=== PATIENT | male | born 1990 | race American Indian/Alaskan Native ===

== ENCOUNTER 2016-11-13 15:55 | Emergency (ER) | payer OTHER ==
--- NOTE | 2016-11-13 16:14 | EDM.PDOC ---
ED HPI GENERAL MEDICAL PROBLEM - General Chief Complaint: Fever Stated Complaint: FEVER/EYES SORE Time Seen by Provider: 11/13/16 16:11 - History of Present Illness INITIAL COMMENTS - FREE TEXT/NARRATIVE: HISTORY AND PHYSICAL: History of present illness: The patient is a 26-year-old male with no stated medical problems who presents with a ten-day history of body aches malaise and fevers in the evenings up to 101 which resolved with Tylenol and diarrhea which is loose to 3 times per day. He has no chest pain or shortness of breath no sore throat no headache or neck pain no abdominal pain no vomiting or nausea. He's been able to eat or drink. He does not feel like he is dehydrated and he usually follows at [facility] but did not go there and came here for evaluation. The patient denies any ill contacts or recent travel. He doesn't have any swollen glands in these notes in his neck and he has no ear pain. The patient states he mostly gets the fevers in the evening time and not during the daytime. The patient also complains of pain behind his eyes deep in his face but does not radiate. He has no nasal congestion or drainage. He denies seasonal allergies Review of systems: As per history of present illness and below otherwise all systems reviewed and negative. Past medical history: As per history of present illness and as reviewed below otherwise noncontributory. Surgical history: As per history of present illness and as reviewed below otherwise noncontributory. Social history: No reported history of drug or alcohol abuse. Family history: As per history of present illness and as reviewed below otherwise noncontributory. Physical exam: Gen.: Well-developed well-nourished male who is nontoxic and speaking easily in the ED and vital signs have been reviewed by me. Skin: Normal turgor no evidence of overt rashes or lesions are seen HEENT: Atraumatic, normocephalic, pupils reactive, sclera are not injected negative for conjunctival pallor or scleral icterus, mucous membranes moist, throat clear, neck supple, nontender, trachea midline. There is no cervical adenopathy or nuchal rigidity, TMs are normal bilaterally, nasal turbinates are boggy and erythematous bilaterally but there are nonobstructing and there is scant nasal drainage. There is mild maxillary sinus tenderness on palpation and no frontal sinus tenderness Lungs: Clear to auscultation, breath sounds equal bilaterally, chest nontender. Heart: S1S2, regular rate and rhythm no overt murmurs Abdomen: Soft, nondistended, nontender. NABS. Genitourinary: Deferred. Rectal: Deferred. Extremities: Atraumatic, negative for cords or calf pain. Neurovascular unremarkable. Neuro: Awake, alert, oriented. Cranial nerves II through XII unremarkable. Cerebellum unremarkable. Motor and sensory unremarkable throughout. Exam nonfocal. Diagnostics: CBC CMP lactic acid Monospot Therapeutics: Toradol was offered and declined I discussed with the patient that this constellation of symptoms is most likely viral but that I would be happy to do some basic labs here in the ED and he would need to follow-up with his clinic doctor at [facility] or one of our physicians for further care I discussed all testing results with the patient including the lymphocytic shift of his differential, his Monospot test is positive, and the slight bump in his liver function tests. I've advised him on symptomatic care. I advised him to follow-up in the clinic and get a repeat liver function tests as both a combination of his semiregular beer use and the [place] can cause a bump in those liver tests I advised follow-up in the clinic hydration and rest Impression: Viral illness/mononucleosis Definitive disposition and diagnosis as appropriate pending reevaluation and review of above. Generalized Pain Score (Numeric/FACES): 4 - Related Data Allergies Allergy/AdvReac Type Severity Reaction Status Date / Time No Known Allergies Allergy Verified 10/24/15 22:17 Home Meds: Home Meds . [No Known Home Meds] 10/24/15 [History] Past Medical History - Past Health History Medical/Surgical History: Denies Medical/Surgical History - Infectious Disease History Infectious Disease History: Reports: Chicken Pox - Past Surgical History GI Surgical History: Reports: Hernia Repair/Other Musculoskeletal Surgical History: Reports: Other (See Below) Social & Family History - Family History Cardiac: Reports: Heart Failure - Tobacco Use Smoking Status *Q: Former Smoker Years of Tobacco use: 3 Packs/Tins Daily: 0.1 Used Tobacco, but Quit: Yes Month Tobacco Last Used: dec 2015 - Recreational Drug Use Recreational Drug Use: No ED ROS GENERAL - Review of Systems Review Of Systems: ROS reveals no pertinent complaints other than HPI. ED EXAM, GENERAL - Physical Exam Exam: See Below (see dictation) Course - Vital Signs Last Recorded V/S: Last Vital Signs Temp 36.0 C 11/13/16 16:05 Pulse 79 11/13/16 16:05 Resp 18 11/13/16 16:05 BP 134/79 11/13/16 16:05 Pulse Ox 97 11/13/16 16:05 - Orders/Labs/Meds Labs: Laboratory Tests 11/13/16 11/13/16 11/13/16 Range/Units 16:20 16:20 16:20 WBC 5.78 (4.0-11.0) K/uL RBC 5.11 (4.50-5.90) M/uL Hgb 15.4 (13.0-17.0) g/dL Hct 44.6 (38.0-50.0) % MCV 87.3 (80.0-98.0) fL MCH 30.1 (27.0-32.0) pg MCHC 34.5 (31.0-37.0) g/dL RDW Std Deviation 40.9 (28.0-62.0) fl RDW Coeff of Natalie 13 (11.0-15.0) % Plt Count 264 (150-400) K/uL MPV 9.30 (7.40-12.00) fL Add Manual Diff YES Neutrophils % (Manual) 29 L (48.0-80.0) % Band Neutrophils % 15 % Lymphocytes % (Manual) 44 H (16.0-40.0) % Monocytes % (Manual) 10 (0.0-15.0) % Eosinophils % (Manual) 2 (0.0-7.0) % Nucleated RBC % 0.0 /100WBC Absolute Seg Neuts 1.7 Band Neutrophils # 0.9 Lymphocytes # (Manual) 2.5 Monocytes # (Manual) 0.6 Eosinophils # (Manual) 0.1 Nucleated RBCs # 0 K/uL Lactate 0.8 (0.20-2.00) mmol/L Sodium 138 (136-146) mmol/L Potassium 4.1 (3.5-5.1) mmol/L Chloride 106 (98-110) mmol/L Carbon Dioxide 23 (21-31) mmol/L BUN 16 (6.0-23.0) mg/dL Creatinine 1.2 (0.6-1.5) mg/dL Est Cr Clr Drug Dosing TNP Estimated GFR (MDRD) > 60.0 ml/min Glucose 101 (60-110) mg/dL Calcium 9.2 (8.8-10.8) mg/dL Total Bilirubin 0.5 (0.1-1.5) mg/dL AST 57 H (5-40) IU/L ALT 96 H (8-54) IU/L Alkaline Phosphatase 116 (40-150) Total Protein 7.6 (6.0-8.0) g/dL Albumin 4.2 (3.5-5.0) g/dL Globulin 3.4 (2.0-3.5) g/dL Albumin/Globulin Ratio 1.2 L (1.3-2.8) Monoscreen (NEG) 11/13/16 Range/Units 16:20 WBC (4.0-11.0) K/uL RBC (4.50-5.90) M/uL Hgb (13.0-17.0) g/dL Hct (38.0-50.0) % MCV (80.0-98.0) fL MCH (27.0-32.0) pg MCHC (31.0-37.0) g/dL RDW Std Deviation (28.0-62.0) fl RDW Coeff of Natalie (11.0-15.0) % Plt Count (150-400) K/uL MPV (7.40-12.00) fL Add Manual Diff Neutrophils % (Manual) (48.0-80.0) % Band Neutrophils % % Lymphocytes % (Manual) (16.0-40.0) % Monocytes % (Manual) (0.0-15.0) % Eosinophils % (Manual) (0.0-7.0) % Nucleated RBC % /100WBC Absolute Seg Neuts Band Neutrophils # Lymphocytes # (Manual) Monocytes # (Manual) Eosinophils # (Manual) Nucleated RBCs # K/uL Lactate (0.20-2.00) mmol/L Sodium (136-146) mmol/L Potassium (3.5-5.1) mmol/L Chloride (98-110) mmol/L Carbon Dioxide (21-31) mmol/L BUN (6.0-23.0) mg/dL Creatinine (0.6-1.5) mg/dL Est Cr Clr Drug Dosing Estimated GFR (MDRD) ml/min Glucose (60-110) mg/dL Calcium (8.8-10.8) mg/dL Total Bilirubin (0.1-1.5) mg/dL AST (5-40) IU/L ALT (8-54) IU/L Alkaline Phosphatase (40-150) Total Protein (6.0-8.0) g/dL Albumin (3.5-5.0) g/dL Globulin (2.0-3.5) g/dL Albumin/Globulin Ratio (1.3-2.8) Monoscreen POSITIVE (NEG) Departure - Departure Time of Disposition: 17:35 Disposition: Home, Self-Care 01 Condition: Good Clinical Impression: Viral illness, Mononucleosis - Discharge Information Forms: ED Department Discharge Additional Instructions: The following information is given to patients seen in the emergency department who are being discharged to home. This information is to outline your options for follow-up care. We provide all patients seen in our emergency department with a follow-up referral. The need for follow-up, as well as the timing and circumstances, are variable depending upon the specifics of your emergency department visit. If you don't have a primary care physician on staff, we will provide you with a referral. We always advise you to contact your personal physician following an emergency department visit to inform them of the circumstance of the visit and for follow-up with them and/or the need for any referrals to a consulting specialist. The emergency department will also refer you to a specialist when appropriate. This referral assures that you have the opportunity for followup care with a specialist. All of these measure are taken in an effort to provide you with optimal care, which includes your followup. Under all circumstances we always encourage you to contact your private physician who remains a resource for coordinating your care. When calling for followup care, please make the office aware that this follow-up is from your recent emergency room visit. If for any reason you are refused follow-up, please contact the [facility] emergency department at and ask to speak to the emergency department charge nurse. [facility] Primary care- [place] [address] Push hydration rest and please call and follow-up with one of our clinic physicians as we discussed for reevaluation and further care as well as repeat liver function test. Please try to reduce your beer intake and use over-the- counter medications for fever and pain. Return to the ER as needed and as discussed
[2016-11-13 16:48] LABS: CHLORIDE,CL 106 mmol/L (98-110); SODIUM,NA 138 mmol/L (136-146)
[2016-11-13 17:47] VITALS: BP 124/70
== END 2016-11-13 17:52 | disposition home or self-care (01) ==
LOC: MW.ED 15:55
DX: B27.90 Infectious mononucleosis, unspecified without complication (principal); B34.9 Viral infection, unspecified; Z87.891 Personal history of nicotine dependence
CPT/HCPCS: 36415; 80053; 83605; 85025; 86308; 99282; 99283

== ENCOUNTER 2018-01-20 00:26 | Emergency (ER) | payer OTHER ==
--- NOTE | 2018-01-20 00:28 | EDM.PDOC ---
ED HPI GENERAL MEDICAL PROBLEM - General Stated Complaint: BACK PAIN Time Seen by Provider: 01/20/18 00:27 Source of Information: Reports: Patient History Limitations: Reports: No Limitations - History of Present Illness INITIAL COMMENTS - FREE TEXT/NARRATIVE: HISTORY AND PHYSICAL: History of present illness: 27-year-old male presenting months department with chief complaint of lower back pain. Patient states that he has a history of lower back pain and has been seen by a provider for this approximately 3-4 weeks ago. At that time he was given a muscle relaxer. Patient states that he has been sick on and off for the past 4 days but was feeling better later this evening so went to a friend's house to play basketball. States that when he went up to "dunk the ball" he hung on the rim and felt a immediate squeezing in his right lower back. States that he fell to the ground in pain. Denies any trauma or hitting his head or loss of consciousness. States that he has had pain since so came to the emergency department for further evaluation. He denies any direct trauma to his back and denies any bowel or bladder incontinence. Denies any loss of muscle strength or sensation. Review of systems: As per history of present illness and below otherwise all systems reviewed and negative. Past medical history: As per history of present illness and as reviewed below otherwise noncontributory. Surgical history: As per history of present illness and as reviewed below otherwise noncontributory. Social history: No reported history of drug or alcohol abuse. Family history: As per history of present illness and as reviewed below otherwise noncontributory. Physical exam: HEENT: Atraumatic, normocephalic, pupils reactive, negative for conjunctival pallor or scleral icterus, mucous membranes moist, throat clear, neck supple, nontender, trachea midline. Lungs: Clear to auscultation, breath sounds equal bilaterally, chest nontender. Heart: S1S2, regular, negative for clicks, rubs, or JVD. Abdomen: Soft, nondistended, nontender. Negative for masses or hepatosplenomegaly. Negative for costovertebral tenderness. Pelvis: Stable nontender. Genitourinary: Deferred. Rectal: Deferred. Extremities: Atraumatic, negative for cords or calf pain. Neurovascular unremarkable. Neuro: Awake, alert, oriented. Cranial nerves II through XII unremarkable. Cerebellum unremarkable. Motor and sensory unremarkable throughout. Exam nonfocal. Diagnostics: [] Therapeutics: Tordol 60 Mg IM x1 Flexeril 10 mg PO x 1 Prescription Flexeril 10 mg PO TID prn muscle spasm #30 Impression: Lower back pain Paraspinal muscle spasm right side Plan: As above patient was given Toradol as well as Flexeril in the emergency department. His pain was secondary to a right sided lumbar muscle spasm. Patient was discharged in good condition with a prescription for Flexeril and instructions follow-up with his primary are provider and return to emergency department if any new or worsening symptoms. Definitive disposition and diagnosis as appropriate pending reevaluation and review of above. Right lower back Pain Score (Numeric/FACES): 6 - Related Data Allergies Allergy/AdvReac Type Severity Reaction Status Date / Time No Known Allergies Allergy Verified 01/20/18 00:36 Home Meds: Home Meds . [No Known Home Meds] 10/24/15 [History] Past Medical History - Past Health History Medical/Surgical History: Denies Medical/Surgical History - Infectious Disease History Infectious Disease History: Reports: Chicken Pox - Past Surgical History GI Surgical History: Reports: Hernia Repair/Other Musculoskeletal Surgical History: Reports: Other (See Below) Social & Family History - Family History Cardiac: Reports: Heart Failure ED ROS GENERAL - Review of Systems Review Of Systems: ROS reveals no pertinent complaints other than HPI. ED EXAM, GENERAL - Physical Exam Exam: See Below Course - Vital Signs Last Recorded V/S: Last Vital Signs Temp 97.9 F 01/20/18 00:36 Pulse 101 H 01/20/18 00:36 Resp 16 01/20/18 00:36 BP 141/95 H 01/20/18 00:36 Pulse Ox 95 01/20/18 00:36 - Orders/Labs/Meds Meds: Medications Discontinued Medications Generic Name Dose Route Start Last Admin Trade Name Freq PRN Reason Stop Dose Admin Cyclobenzaprine HCl 10 mg 01/20/18 00:42 Flexeril PO 01/20/18 00:43 ONETIME ONE Ketorolac Tromethamine 60 mg 01/20/18 00:42 Toradol IM 01/20/18 00:43 ONETIME ONE Departure - Departure Time of Disposition: 00:52 Disposition: Home, Self-Care 01 Condition: Good Clinical Impression: Lumbar back pain, Muscle spasm of back - Discharge Information Additional Instructions: My general discharge The following information is given to patients seen in the emergency department who are being discharged to home. This information is to outline your options for follow-up care. We provide all patients seen in our emergency department with a follow-up referral. The need for follow-up, as well as the timing and circumstances, are variable depending upon the specifics of your emergency department visit. If you don't have a primary care physician on staff, we will provide you with a referral. We always advise you to contact your personal physician following an emergency department visit to inform them of the circumstance of the visit and for follow-up with them and/or the need for any referrals to a consulting specialist. The emergency department will also refer you to a specialist when appropriate. This referral assures that you have the opportunity for follow-up care with a specialist. All of these measure are taken in an effort to provide you with optimal care, which includes your follow-up. Under all circumstances we always encourage you to contact your private physician who remains a resource for coordinating your care. When calling for follow-up care, please make the office aware that this follow-up is from your recent emergency room visit. If for any reason you are refused follow-up, please contact the [facility] Emergency Department at and asked to speak to the emergency department charge nurse. [facility] Primary Care [address] [place] [id number] Follow-up with primary care provider as we discussed. Take medications as prescribed. Return to emergency department if any new or worsening symptoms as we discussed.
[2018-01-20] MEDS ORDERED: Cyclobenzaprine 10 MG Tab PO ONE (00:42)
[2018-01-20] MEDS ORDERED: Ketorolac 60 MG/2 ML SDV IM ONE (00:42)
[2018-01-20 01:16] VITALS: BP 125/69
== END 2018-01-20 01:10 | disposition home or self-care (01) ==
LOC: MW.ED 00:26
DX: M62.830 Muscle spasm of back (principal)
CPT/HCPCS: 96372; 99283; A9270; J1885

== ENCOUNTER 2019-08-05 12:18 | Emergency (ER) | payer OTHER ==
--- NOTE | 2019-08-05 12:32 | EDM.PDOC ---
ED HPI GENERAL MEDICAL PROBLEM - General Chief Complaint: Head Injury Stated Complaint: JAW INJURY Time Seen by Provider: 08/05/19 12:19 Source of Information: Reports: Patient History Limitations: Reports: No Limitations - History of Present Illness INITIAL COMMENTS - FREE TEXT/NARRATIVE: HISTORY AND PHYSICAL: History of present illness: Patient is a 29-year-old male who presents to the emergency room with complaints of left upper jaw pain. He states he was trying to force his screen door open when it let loose abruptly hitting him in the left side of the face. He is having pain with clenching his jaw or wanting to fully open it. He is able to open and close his mouth with talking. He denies any loss of consciousness. Denies any other extremity involvement. Patient denies any fever, chills, headache, change in vision, syncope or near syncope. Denies any chest pain, back pain, shortness of breath or cough. Denies any GI or symptoms. Review of systems: As per history of present illness and below otherwise all systems reviewed and negative. Past medical history: As per history of present illness and as reviewed below otherwise noncontributory. Surgical history: As per history of present illness and as reviewed below otherwise noncontributory. Social history: See social history for further information Family history: As per history of present illness and as reviewed below otherwise noncontributory. Physical exam: General: Well-developed and well-nourished 29-year-old male. Alert and oriented. Nontoxic-appearing and in no acute distress. HEENT: Pain with palpation of the left jaw. Normocephalic, pupils equal and reactive bilaterally, negative for conjunctival pallor or scleral icterus, mucous membranes moist, oral mucosa intact, teeth are intact, TMs normal bilaterally, throat clear, neck supple, nontender, trachea midline. No temporal pain. No drooling or trismus noted. No meningeal signs. No crepitus or clicking with jaw movement. No hot potato voice noted. Lungs: Clear to auscultation, breath sounds equal bilaterally, chest nontender. Heart: S1S2, regular rate and rhythm without overt murmur Abdomen: Soft, nondistended, nontender. Skin: Intact, warm, dry. No lesions or rashes noted. Extremities: Atraumatic, moves all extremities per self without difficulty or deficits, negative for cords or calf pain. Neurovascular unremarkable. Neuro: Awake, alert, oriented. Cranial nerves II through XII unremarkable. Cerebellum unremarkable. Motor and sensory unremarkable throughout. Exam nonfocal. Notes: Patient requested to come back into the room. He is wearing the ER gloves and wants to show me that he can dislocate his own jaw when he pulls down. While he is talking about this he is freely opening and closing his mouth and teeth are connecting with a good bite. Education was given to the patient. CT shows some nonspecific erosive arthritis. Patient skin is intact, no soft tissue swelling no redness. No evidence of fracture. Findings were shared with the patient. Supportive care measures were reviewed and discussed. Voices understanding and is agreeable to plan of care. Denies any further questions or concerns at this time. Diagnostics: Maxillofacial CT Therapeutics: Declined Prescription: Diclofenac Impression: Jaw injury Plan: 1. Jaw rest. Eat soft foods over the next 1- 2 days. Gentle ice to the area. 2. Alternate Tylenol and ibuprofen for pain management. 3. Please follow-up with your primary care provider as we discussed. Return to the ED as needed and as discussed. Definitive disposition and diagnosis as appropriate pending reevaluation and review of above. left upper jaw Pain Score (Numeric/FACES): 8 - Related Data Allergies Allergy/AdvReac Type Severity Reaction Status Date / Time No Known Allergies Allergy Verified 08/05/19 12:38 Home Meds: Home Meds . [No Known Home Meds] 10/24/15 [History] Past Medical History - Past Health History Medical/Surgical History: Denies Medical/Surgical History Cardiovascular History: Reports: Heart Murmur - Infectious Disease History Infectious Disease History: Reports: Chicken Pox - Past Surgical History HEENT Surgical History: Reports: Oral Surgery GI Surgical History: Reports: Hernia Repair/Other Musculoskeletal Surgical History: Reports: Other (See Below) Social & Family History - Family History Family Medical History: Noncontributory Cardiac: Reports: Heart Failure - Caffeine Use Caffeine Use: Reports: None ED ROS GENERAL - Review of Systems Review Of Systems: Comprehensive ROS is negative, except as noted in HPI. ED EXAM, HEAD INJURY - Physical Exam Exam: See Below (See dictation) Course - Vital Signs Last Recorded V/S: Last Vital Signs Temp 97.0 F 08/05/19 12:34 Pulse 83 08/05/19 12:34 Resp 18 08/05/19 12:34 BP 123/84 08/05/19 12:34 Pulse Ox 98 08/05/19 12:34 Departure - Departure Time of Disposition: 13:11 Disposition: Home, Self-Care 01 Clinical Impression: Injury of jaw Qualifiers: Encounter type: initial encounter Qualified Code(s): S09.93XA - Unspecified injury of face, initial encounter - Discharge Information Instructions: Head Injury, Adult, [id number] Referrals: PCP,None [Primary Care Provider] - Forms: ED Department Discharge Additional Instructions: The following information is given to patients seen in the emergency department who are being discharged to home. This information is to outline your options for follow-up care. We provide all patients seen in our emergency department with a follow-up referral. The need for follow-up, as well as the timing and circumstances, are variable depending upon the specifics of your emergency department visit. If you don't have a primary care physician on staff, we will provide you with a referral. We always advise you to contact your personal physician following an emergency department visit to inform them of the circumstance of the visit and for follow-up with them and/or the need for any referrals to a consulting specialist. The emergency department will also refer you to a specialist when appropriate. This referral assures that you have the opportunity for follow-up care with a specialist. All of these measure are taken in an effort to provide you with optimal care, which includes your follow-up. Under all circumstances we always encourage you to contact your private physician who remains a resource for coordinating your care. When calling for follow-up care, please make the office aware that this follow-up is from your recent emergency room visit. If for any reason you are refused follow-up, please contact the [facility] Emergency Department at and asked to speak to the emergency department charge nurse. [facility] [address] [place] [address] [id number] [address] [id number] 1. Jaw rest. Eat soft foods over the next 1- 2 days. Gentle ice to the area. 2. Alternate Tylenol and ibuprofen for pain management. 3. Please follow-up with your primary care provider as we discussed. Return to the ED as needed and as discussed. Sepsis Event Note - Focused Exam Vital Signs: Vital Signs Temp Pulse Resp BP Pulse Ox 08/05/19 12:34 97.0 F 83 18 123/84 98 Date Exam was Performed: 08/05/19 Time Exam was Performed: 13:10
[2019-08-05 12:38] VITALS: BP 123/84; PULSE 83
--- NOTE | 2019-08-05 13:09 | CT ---
CT maxillofacial Technique: Multiple axial sections were obtained through the maxillofacial area. Reconstructed coronal and sagittal images were obtained. No intravenous contrast was utilized. Findings: Paranasal sinuses are clear. No mucosal thickening or air-fluid levels are seen within the paranasal sinuses. Mastoid sinuses are also clear without acute change. Nasal septal deviation is noted. No facial bone fracture is identified. Right and left globes are symmetric. Extraocular muscles are symmetric. Optic nerves are also appear symmetric between right and left sides. No retrobulbar abnormality is seen. Small erosion is identified within the left mandibular condyle. This erosion measures about 6 mm. Impression: 1. Small erosion within the left mandibular condyle. This is nonspecific and could represent change from infection as well as erosive arthritis with differential also including rheumatoid arthritis. 2. No acute finding is otherwise seen on CT study of the facial bones. Diagnostic code #3 Study was dictated in MDT
== END 2019-08-05 13:22 | disposition home or self-care (01) ==
LOC: MW.ED 12:18
DX: S09.93XA Unspecified injury of face, initial encounter (principal); W22.8XXA Striking against or struck by other objects, initial encounter
CPT/HCPCS: 70486; 70486-26; 99283; 99283-25

== ENCOUNTER 2023-12-14 00:21 | Emergency (ER) | payer OTHER ==
[2023-12-14] MEDS: Ketorolac 30 MG/ML SDV IVPUSH ONE (00:41)
[2023-12-14] MEDS: Sodium Chloride 0.9% 2.5 ML Syringe FLUSH PRN (00:42)
[2023-12-14] MEDS: Sodium Chloride 0.9% 10 ML Syringe FLUSH PRN (00:42)
[2023-12-14 00:54] LABS: BASOPHILS ABSOLUTE AUTO 0.06 K/uL (0.00-0.20); BASOPHILS PERCENT AUTO 0.7 % (0.0-1.0); EOSINOPHILS ABSOLUTE AUTO 0.12 K/uL (0.00-0.45); EOSINOPHILS PERCENT AUTO 1.4 % (0.0-6.0); HEMATOCRIT 39.1 % (42.0-52.0); HEMOGLOBIN 13.6 g/dL (14.0-18.0); IMMATURE GRAN ABSOLUTE AUTO 0.03 K/uL (0.00-0.05); IMMATURE GRAN PERCENT AUTO 0.4 % (0.0-0.4); LYMPHOCYTES ABSOLUTE AUTO 4.02 K/uL (1.00-4.80); LYMPHOCYTES PERCENT AUTO 48.1 % (24.0-44.0); MEAN CORPUSCULAR HEMOGLOBIN 29.4 pg (28.0-32.0); MEAN CORPUSCULAR HGB CONC 34.8 g/dL (32.0-36.0); MEAN CORPUSCULAR VOLUME 84.6 fL (83.0-99.0); MEAN PLATELET VOLUME 9.5 fL (9.4-12.4); MONOCYTES ABSOLUTE AUTO 0.61 K/uL (0.00-0.80); MONOCYTES PERCENT AUTO 7.3 % (0.0-8.0); NEUTROPHILS ABSOLUTE AUTO 3.51 K/uL (1.80-7.70); NEUTROPHILS PERCENT AUTO 42.1 % (41.0-71.0); PLATELET COUNT,PLT 331 K/uL (150-400); RED BLOOD CELL COUNT 4.62 M/uL (4.52-5.90); WHITE BLOOD CELL COUNT,WBC 8.35 K/uL (3.9-11.3)
[2023-12-14 01:07] LABS: INR 1.01 (0.86-1.11)
[2023-12-14 01:17] LABS: A/G RATIO 1.2 (0.9-1.6); ALBUMIN 4.2 g/dL (3.4-5.0); BILIRUBIN TOTAL 0.5 mg/dL (0.2-1.0); CALCIUM 8.7 mg/dL (8.5-10.1); CARBON DIOXIDE,CO2 29.9 mmol/L (21.0-32.0); EST CRCL DRUG DOSING (CG) 106.44 mL/min; POTASSIUM,K 3.6 mmol/L (3.5-5.1); PROTEIN TOTAL,TP 7.6 g/dL (6.4-8.2)
[2023-12-14 02:23] VITALS: BP 98/57; PULSE 61
== END 2023-12-14 01:55 | disposition home or self-care (01) ==
LOC: MW.ED 00:21
DX: G44.209 Tension-type headache, unspecified, not intractable (principal); Z75.8 Other problems related to medical facilities and other health care
CPT/HCPCS: 36415; 70450; 80053; 85025; 85610; 93005; 96374; 96375; 99284; J1885; J3360; J3490

== ENCOUNTER 2025-02-01 18:59 | Emergency (ER) | payer OTHER ==
[2025-02-01] MEDS: diphenhydrAMINE 50 MG/ML SDV IVPUSH ONE (19:53)
[2025-02-01 19:56] LABS: BASOPHILS ABSOLUTE AUTO 0.03 K/uL (0.00-0.20); BASOPHILS PERCENT AUTO 0.3 % (0.0-1.0); EOSINOPHILS ABSOLUTE AUTO 0.05 K/uL (0.00-0.45); EOSINOPHILS PERCENT AUTO 0.6 % (0.0-6.0); IMMATURE GRAN ABSOLUTE AUTO 0.04 K/uL (0.00-0.05); IMMATURE GRAN PERCENT AUTO 0.5 % (0.0-0.4); LYMPHOCYTES ABSOLUTE AUTO 1.65 K/uL (1.00-4.80); LYMPHOCYTES PERCENT AUTO 18.7 % (24.0-44.0); MEAN PLATELET VOLUME 9.3 fL (9.4-12.4); MONOCYTES ABSOLUTE AUTO 0.55 K/uL (0.00-0.80); MONOCYTES PERCENT AUTO 6.2 % (0.0-8.0); NEUTROPHILS ABSOLUTE AUTO 6.49 K/uL (1.80-7.70); NEUTROPHILS PERCENT AUTO 73.7 % (41.0-71.0); NRBC ABSOLUTE 0.00 K/uL (0.00-0.02); NRBC PERCENT 0.0 /100WBC (0.0-0.2); PLATELET COUNT,PLT 364 K/uL (150-400); RED BLOOD CELL COUNT 4.80 M/uL (4.52-5.90); WHITE BLOOD CELL COUNT,WBC 8.81 K/uL (3.9-11.3)
[2025-02-01] MEDS: Iopamidol 755 MG/ML 500 ML Multipack Bottle IVPUSH ONE (20:07)
[2025-02-01 20:08] LABS: INR 1.0 (0.86-1.11); PTT,PARTIAL THROMBOPLSTIN TIME 25.6 SEC (23.9-30.7)
[2025-02-01 20:20] LABS: A/G RATIO 1.1 (0.9-1.6); ALANINE AMINOTRANSFERASE,ALT 50.0 IU/L (14-63); ASPARTATE AMNIOTRANSFERASE,AST 28.0 IU/L (15-37); BILIRUBIN TOTAL 0.4 mg/dL (0.2-1.0); BLOOD UREA NITROGEN,BUN 18.0 mg/dL (7.0-18.0); CARBON DIOXIDE,CO2 26.6 mmol/L (21.0-32.0); CHLORIDE,CL 103.0 mmol/L (98-107); CREATININE 1.0 mg/dL (0.8-1.3); EST CRCL DRUG DOSING (CG) 105.46 mL/min; GLUCOSE RANDOM 111.0 mg/dL (74-106); POTASSIUM,K 4.1 mmol/L (3.5-5.1); PROTEIN TOTAL,TP 7.8 g/dL (6.4-8.2); SODIUM,NA 140.0 mmol/L (136-148)
[2025-02-01 20:21] LABS: ESTIMATED GFR 103.0 mL/min (>60)
[2025-02-01 20:38] LABS: GLUCOSE,URINE NEGATIVE (NEGATIVE); OCCULT BLOOD,URINE NEGATIVE (NEGATIVE)
[2025-02-01 20:41] LABS: APPEARANCE,URINE HAZY
[2025-02-01 20:47] LABS: AMPHETAMINES SCREEN, URINE NEGATIVE (CUTOFF=500); BUPRENORPHINE SCREEN,URINE PRESUMPTIVE POSITIVE (CUTOFF=10); METHADONE SCREEN, URINE NEGATIVE (CUTOFF=200); METHAMPHETAMINES SCREEN, URINE NEGATIVE (CUTOFF=500); OXYCODONE SCREEN,URINE NEGATIVE (CUT0FF=100); PCP SCREEN,URINE NEGATIVE (CUTOFF=25); THC SCREEN,URINE 20 NG/ML PRESUMPTIVE POSITIVE (CUTOFF=50)
[2025-02-01 20:51] LABS: EPITHELIAL CELLS,URINE RARE (NONE-FEW)
[2025-02-01 22:22] VITALS: BP 112/86; PULSE 84
== END 2025-02-01 22:20 | disposition home or self-care (01) ==
LOC: MW.ED 18:59
DX: G43.909 Migraine, unspecified, not intractable, without status migrainosus (principal); R59.0 Localized enlarged lymph nodes; Z79.899 Other long term (current) drug therapy
CPT/HCPCS: 36415; 70470; 80053; 80305; 81001; 85025; 85610; 85730; 96361; 96374; 96375; 99284; J1200; J2765; J7040; Q9967